=== PATIENT | male | born 1945 | race Caucasian/White ===

== ENCOUNTER 2016-02-26 07:35 | Inpatient (IN) | payer MEDICARE ==
[~2016-02-26] VITALS: Ht 182.9 cm; Wt 103.5 kg
[2016-02-26] MEDS ORDERED: ASPI1TAB69 PO (11:01)
[2016-02-26] MEDS ORDERED: LISI10TA3 PO (11:01)
--- NOTE | 2016-03-17 17:22 | MH ---
cc: Akash HUGHES M.D. DATE OF ADMISSION: 03/18/2016 ADMISSION DIAGNOSIS Osteoarthritic degeneration right knee, now being admitted for right total knee arthroplasty. ADMISSION HISTORY AND PHYSICAL This pleasant 70-year-old male is being admitted today for severe painful osteoarthritic degeneration of the right knee now for a right total knee arthroplasty. OTHER PAST HISTORY/MEDICATIONS He has a history of platelet problems but his last platelet count was 129. He has a history of hypertension and skin problems for which he takes lisinopril, aspirin, Mobic and omeprazole. PREVIOUS SURGERIES A left total knee in 2007. REVIEW OF SYSTEMS Noncontributory. FAMILY HISTORY Noncontributory. SOCIAL HISTORY The patient does not smoke. Does drink some alcohol. ALLERGIES NO KNOWN ALLERGIES. PHYSICAL EXAMINATION GENERAL: We find a 70-year-old male well-developed, well-nourished, oriented x3, complaining of pain in his right knee, he is using a cane to ambulate. VITAL SIGNS: Blood pressure 136/82, pulse 60 and regular, respirations 18, temperature 97.7, pulse oximetry 98% on room air. HEENT: Eyes: Pupils equal, round, reactive to light and accommodation. Extraocular movements intact. Ears, nose, mouth: Clear. NECK: Supple. LUNGS: Clear. HEART: Regular rate. ABDOMEN: Soft, positive bowel sounds, nontender. EXTREMITIES: Reveals the right knee to be tender with crepitance throughout range of motion, -5 of extension, 85 of flexion, slight genu varus deformity. IMPRESSION AT THIS TIME Severe painful osteoarthritic degeneration of the right knee. PLAN The plan is admission for right total knee arthroplasty today. The patient understands the procedure well and the risks involved and he understands to use Hibiclens scrub and Bactroban preoperatively and is given a prescription for postoperative pain and anticoagulation control as he plans on going home several days after surgery for home health care. MD NEEL Garcia/OTTO /4:47 PM /4:53 PM
[2016-03-18] MEDS ORDERED: INSULIN HUMAN REGULAR 1,000 UNITS/10 ML VIAL SQ PRN (06:30)
[2016-03-18] MEDS ORDERED: VANCOMYCIN 1000 MG/NS 250 ML (for <70 kg) IV SCH ×2 (06:30)
[2016-03-18] MEDS: CHLORHEXIDINE GLUCONATE 4% SOLN 120 ML BTL TOP SCH (06:30)
[2016-03-18] MEDS ORDERED: METOPROLOL TARTRATE 25 MG TAB PO PRN (06:30)
[2016-03-18] MEDS ORDERED: CYAN50002 SL (06:44)
[2016-03-18 06:45] VITALS: BP 136/79; PULSE 58; RESP 20; TEMP 98.1; O2SAT 97
[2016-03-18] MEDS ORDERED: ceFAZolin 2 GM PREMIX 50 ML IV SCH (07:00)
[2016-03-18] MEDS ORDERED: BUPIVACAINE LIPOSO PF 1.3% INJ 20 ML, BUPIVACAINE PF 0.25% INJ 20 ML in SODIUM CHLORIDE... P-ARTICULR SCH (07:15)
[2016-03-18] MEDS ORDERED: MIDAZOLAM HCL 5 MG/5 ML VIAL ONE (07:22)
[2016-03-18] MEDS ORDERED: FAMOTIDINE 20 MG/2 ML VIAL ONE (07:43)
[2016-03-18] MEDS ORDERED: SODIUM CHLORID 0.9% 500 ML IV SCH (08:00)
[2016-03-18] MEDS ORDERED: SODIUM CHLORIDE 0.9% IV SCH ×2 (08:00→11:00)
[2016-03-18] MEDS ORDERED: LACTATED RINGER'S 1000 ML IV SCH (08:00)
[2016-03-18] MEDS ORDERED: TRANEXAMIC ACID IV SCH ×2 (08:00→11:00)
[2016-03-18] MEDS ORDERED: ceFAZolin INJ 1,000 MG VIAL TOP ONE (08:44)
[2016-03-18] MEDS: LACTATED RINGER'S 1000 ML INJ 1,000 ML IV SCH (10:33)
--- NOTE | 2016-03-18 10:36 | HHI.FF ---
Face to Face Verification Diagnosis: (1) Total knee replacement status Physical Therapy Gait training Knee: Total knee, Protocol: Right, Full weight bearing Canvas Knee Splint: When in bed & 2 pillows btw thighs Nursing RN: 3 days/week x 2 weeks Nursing: Jennifer teaching, Dressing changes Dressing Changes: Daily dressing change, 4x4s, Gauze, Paper tape I have seen patient Darryl Black on 03/18/16. My clinical findings support the need for the requested home health care services because: Limited ability to care for self High risk of falls I certify that my clinical findings support that this patient is homebound because: Unsteady gait/balance Akash Golden MD Mar 18, 2016 10:36
[2016-03-18] MEDS ORDERED: MISC-163 (10:38)
[2016-03-18] MEDS ORDERED: CPMMACHINE (10:38)
[2016-03-18] MEDS ORDERED: WALKER WHEELS/F1 MIS (10:38)
[2016-03-18] MEDS ORDERED: TRANEXAMIC ACID INJ 0 MG in SODIUM CHLORIDE 0.9% INJ 100 ML IV SCH (10:45)
[2016-03-18] MEDS ORDERED: Post-op Orders (for Pharmacy) MISC XX ONE (10:45)
[2016-03-18] MEDS ORDERED: ONDANSETRON HCL 4 MG/2 ML VIAL IVP PRN (10:45)
[2016-03-18] MEDS ORDERED: ACETAMINOPHEN 325 MG TAB PO PRN (10:45)
[2016-03-18] MEDS ORDERED: TEMAZEPAM 15 MG CAP PO PRN (10:45)
[2016-03-18] MEDS ORDERED: MORPHINE SULFATE 30 MG/30 ML PCA IV SCH (10:45)
[2016-03-18] MEDS ORDERED: NALOXONE HCL 0.4 MG/ML AMP IV PRN ×2 (10:45)
[2016-03-18] MEDS ORDERED: ACETAMINOPHEN/HYDROcodone 325 MG/7.5 MG TAB PO PRN (10:45)
[2016-03-18] MEDS ORDERED: diphenhydrAMINE HCL 50 MG/ML VIAL IV PRN (10:45)
[2016-03-18] MEDS ORDERED: SODIUM CHLORIDE 0.9% FLUSH 5 ML FLUSH IVF PRN (10:45)
[2016-03-18] MEDS ORDERED: fentaNYL CITRATE 250 MCG/5 ML AMP ONE (11:13)
[2016-03-18] MEDS ORDERED: BUPIVACAINE HCL PF 0.5% 30 ML VIAL NB ONE (11:20)
[2016-03-18] MEDS ORDERED: ONDANSETRON HCL 4 MG/2 ML VIAL IV PUSH ONE (12:00)
[2016-03-18] MEDS ORDERED: PROPOFOL 200 MG/20 ML AMP IV ONE (12:00)
[2016-03-18] MEDS ORDERED: DO NOT ADM ANY ANTICOAGULANT DRUGS XX PRN (12:30)
--- NOTE | 2016-03-18 12:57 | RADRPT ---
EXAM DATE/TIME: 03/18/2016 11:38 [facility] COMPARISON: No previous studies available for comparison. INDICATIONS : Right knee replacement. MEDICAL HISTORY : Unobtainable. SURGICAL HISTORY : Unobtainable. ENCOUNTER: Initial ACUITY: 1 day PAIN SCORE: Non-responsive. LOCATION: Left knee FINDINGS: Two view examination of the right knee demonstrates postsurgical changes following knee replacement. Prosthetic components are well-seated in satisfactory aligned. There is no evidence of acute fracture. CONCLUSION: Satisfactory postoperative appearance of the right knee following total knee replacement. Paco Rios MD on March 18, 2016 at 12:53 Board Certified Radiologist. This report was verified electronically.
[2016-03-18] MEDS: PCA - TOTAL MG MORPHINE DELIVERED PER SHIFT SCH ×2 (13:15→22:00)
[2016-03-18 15:50] VITALS: BP 143/78; PULSE 76; RESP 17; TEMP 97; O2SAT 96
[2016-03-18 19:39] VITALS: O2SAT 96
[2016-03-18 20:07] VITALS: BP 128/71; PULSE 63; RESP 17; TEMP 99.7; O2SAT 96
[2016-03-18] MEDS: SODIUM CHLORIDE 0.9% FLUSH 5 ML FLUSH IVF SCH (20:56)
[2016-03-19] VITALS (8 sets, daily range): BP systolic 119–130; BP diastolic 57–77; PULSE 57–77; RESP 16–17; TEMP 97.7–99.6; O2SAT 91–98
[2016-03-19] MEDS: LACTATED RINGER'S 1000 ML INJ 1,000 ML IV SCH ×2 (02:38→10:10)
[2016-03-19 05:34] LABS: HEMATOCRIT 36.3 % (39.0-51.0)
[2016-03-19 05:54] LABS: REVIEW FLAG FINAL
[2016-03-19] MEDS: PCA - TOTAL MG MORPHINE DELIVERED PER SHIFT SCH (06:00)
[2016-03-19] MEDS: CHLORHEXIDINE GLUCONATE 4% SOLN 120 ML BTL TOP SCH (06:30)
[2016-03-19] MEDS: SODIUM CHLORIDE 0.9% FLUSH 5 ML FLUSH IVF SCH ×2 (09:00→21:43)
--- NOTE | 2016-03-19 09:03 | PD.ORT.PN ---
Subjective Subjective Remarks 70 yo male POD#1 s/p right knee arthroplasty Patient has no complaints. He denies any nausea or vomiting, chest pain or SOB. He has been using his pain pump intermittently. He has voided once but has not yet had a BM. Yesterday he stood up & moved to the chair for a few hours. Physical therapy saw him yesterday. Objective Vitals Vital Signs Date Time Temp Pulse Resp B/P Pulse Ox O2 Delivery O2 Flow Rate FiO2 03/19/16 06:00 20 03/19/16 04:07 97.7 60 17 119/57 97 03/19/16 00:10 97.9 57 17 129/71 98 03/18/16 23:40 16 03/18/16 22:00 18 03/18/16 20:07 99.7 63 17 128/71 96 03/18/16 19:39 96 21 03/18/16 15:50 97.0 76 17 143/78 96 03/18/16 13:15 17 03/18/16 12:45 98.1 61 12 128/74 95 Room Air 03/18/16 12:30 60 12 120/73 95 Room Air 03/18/16 12:15 59 12 123/72 95 Room Air 03/18/16 12:00 59 12 123/74 97 Room Air 03/18/16 11:45 59 12 131/79 97 Nasal Cannula 2 03/18/16 11:30 61 12 136/77 97 Nasal Cannula 2 03/18/16 11:15 61 12 136/78 97 Nasal Cannula 2 03/18/16 11:10 98.0 67 12 139/80 97 Nasal Cannula 2 I/O 03/18/16 03/18/16 03/18/16 03/19/16 03/19/16 03/19/16 07:00 15:00 23:00 07:00 15:00 23:00 Intake Total 1040 ml 480 ml 480 ml Output Total 600 ml 700 ml 500 ml Balance 440 ml -220 ml -20 ml Intake Oral 240 ml 480 ml 480 ml Other 800 ml Output Urine Total 500 ml 700 ml 500 ml Estimated Blood Loss 100 ml # Bowel Movements 0 0 0 Result Diagram: 03/19/16 0515 Imaging Last 24 hours Impressions Knee X-Ray 03/18/16 1033 Signed Impressions: Service Date/Time: March 11:38 - CONCLUSION: Satisfactory postoperative appearance of the right knee following total knee replacement. Paco Rios MD Objective Remarks Heart: regular rate and rhythm. No rubs, murmurs or gallops. Lungs: clear to auscultation bilaterally. No wheezes, rales, rhonchi. Abdomen: Bowel sounds noted. Soft, non-tender abdomen Extremities: Right leg stabilized in CPM with dressing. No peripheral edema. Assessment & Plan Ortho Post Op Day #: 1 Problem List: Assessment and Plan out of bed PT dressing change daily d/c [employer] REPA[employer] TECHNICIAN consider d/c late tomorrow or Tuesday Akash Golden MD Mar 19, 2016 09:03
[2016-03-19] MEDS: ASPIRIN EC 81 MG TABEC PO SCH (09:14)
[2016-03-19] MEDS: CYANOCOBALAMIN 1,000 MCG TAB PO SCH (09:15)
[2016-03-19] MEDS: LISINOPRIL 10 MG TAB PO SCH (09:15)
[2016-03-19] MEDS: ACETAMINOPHEN/HYDROcodone 325 MG/7.5 MG TAB PO PRN ×4 (09:15→21:43)
--- NOTE | 2016-03-19 10:04 | MP ---
cc: Akash HUGHES M.D. DATE OF SURGERY: 03/18/2016 PREOPERATIVE DIAGNOSIS Osteoarthritic degeneration, right knee. POSTOPERATIVE DIAGNOSIS Osteoarthritic degeneration, right knee. SURGERY PERFORMED Right total knee arthroplasty using Consensus knee system with the pre-made cutting blocks, size 3 patella, 6 femur, 4 tibia and 12 insert with two batches of [place] blue cement. SURGEON Dr. Hughes [employer]IV[employer] ENGINEERING DESIGNER Danielle Pope, and Sandra Alfredo, MS III ANESTHESIA Block and general intubation. PROCEDURE After successful induction of anesthesia, the patient is placed on the operating room table in the supine position. The knee is prepped and draped in the usual manner. A tourniquet is inflated at the upper thigh and set to 300 mmHg pressure after exsanguination of the lower extremity. A longitudinal incision is made extending from 3 inches proximal to the superior pole of the patella, across the patella in longitudinal fashion, and down past the insertion of the tibial tubercle into the proximal tibia. The incision is carried down through subcutaneous tissue along the medial aspect of the patella and retinaculum, down through the capsule to expose the knee joint. The patella and patellar tendon are freed up enough to allow the patella to be inverted and retracted off the lateral side of the knee joint. The knee joint is left exposed. Small osteophytes are removed. All soft tissue is removed to allow proper position of the femoral and tibial cutting jig guide. The first femoral jig is then inserted along the distal end of the femur after first measuring to decide whether this is a small, medium, or large component. The notch is then drilled and the tibial cutting guide inserted into the femoral cutting guide, along with the ankle brace to allow for proper measurement of the tibial cutting surface that needed to be resected. Pins are inserted into the tibial cutting jig and femoral cutting jig to hold them in place. An oscillating saw is then used to resect the surface of the tibia. The surface of the tibia is then completely removed using sharp and blunt dissection. The anterior and posterior cuts of the femur are then made as well using an oscillating saw through the cutting guide. All guides are then removed and the varus/valgus angulation cutting guide applied to the femur for proper measurement of the proper amount of valgus. The anterior cutting guide for the femur is then inserted at the anterior femoral cuts made. Next, the first block trial is inserted into the femur to allow for proper condyle drill holes to be made which are then made followed by removal of the bone between the condyles using an oscillating saw as well as the bone removed at the most posterior surface of the condyle. After this, this guide is removed and the chamfer cuts made using the chamfer cutting guide from both anterior and posterior. Next, the femoral trial is then inserted, the tibial surface reflected anterior to expose the tibial surface and a tibial stem guide is inserted after first measuring for a standard, standard plus, large, or large plus surface to be used. After the stem is impacted the trial tibial surface is applied followed by the trial meniscal components. After full range of motion is found with the appropriate length meniscal components varying the patella is prepared by resecting the posterior aspect of the patella using an oscillating saw, inserting a trial. The trial is then removed and the cruciate cutting guide applied using the bur to cut the cruciate cuts. After cruciate cuts are made all trials are removed. The wound is irrigated copiously with antibiotic solution and Water Pik and the actual components inserted into place using Consensus knee system with the pre-made cutting blocks, size 3 patella, 6 femur, 4 tibia and 12 insert with two batches of [place] blue cement. After the cement has hardened and the components are found to have full range of motion with no instability, the tourniquet is deflated, total tourniquet time being 67 minutes at 300 mmHg pressure. The wound again is irrigated copiously with antibiotic solution, meticulous hemostasis achieved. The deep fascia is closed with running #2 Quill. The subcutaneous tissue is approximated using interrupted and running 2-0 and 3-0 Monocryl sutures. Steri-Strips, sterile dressing and a knee immobilizer are applied. 120 cc of Exparel with Marcaine is injected around the knee joint. Estimated blood loss is 100 cc. Sponge and suture count correct. The patient tolerated the procedure well and left the Operating Room in satisfactory condition. J. MD NEEL Lozada/SHAYAN /10:31 AM /9:44 AM
[2016-03-19] MEDS: ENOXAPARIN SODIUM 30 MG/0.3 ML SYRINGE SQ SCH ×2 (10:10→21:42)
[2016-03-19] MEDS ORDERED: ALUMINUM/MAGNESIUM/SIMETH 30 ML CUP PO PRN (16:45)
[2016-03-19] MEDS: MULTIVITAMINS/MINERALS THERAPEUTIC TAB PO SCH (21:42)
[2016-03-19] MEDS: DOCUSATE SODIUM 100 MG CAP PO SCH (21:42)
[2016-03-20] MEDS: LACTATED RINGER'S 1000 ML INJ 1,000 ML IV SCH ×3 (00:03→21:05)
[2016-03-20 00:27] VITALS: BP_SYST 109; BP_SYST 114; BP_DIAS 58; BP_DIAS 69; PULSE 58; PULSE 78; RESP 16; RESP 17; TEMP 98.2; TEMP 98.9; O2SAT 96; O2SAT 97
[2016-03-20] MEDS: ACETAMINOPHEN/HYDROcodone 325 MG/7.5 MG TAB PO PRN ×6 (01:34→22:04)
[2016-03-20] MEDS: CHLORHEXIDINE GLUCONATE 4% SOLN 120 ML BTL TOP SCH (06:30)
[2016-03-20 06:35] LABS: HEMATOCRIT 36.1 % (39.0-51.0)
[2016-03-20 07:02] LABS: REVIEW FLAG FINAL
[2016-03-20 08:00] VITALS: BP 158/72; PULSE 73; RESP 16; TEMP 97.8; O2SAT 99
[2016-03-20] MEDS: SODIUM CHLORIDE 0.9% FLUSH 5 ML FLUSH IVF SCH ×2 (09:00→21:00)
[2016-03-20] MEDS: ENOXAPARIN SODIUM 30 MG/0.3 ML SYRINGE SQ SCH ×2 (09:22→21:04)
[2016-03-20] MEDS: MAGNESIUM HYDROXIDE SUSP 30 ML CUP PO SCH ×2 (09:22→21:04)
[2016-03-20] MEDS: ASPIRIN EC 81 MG TABEC PO SCH (09:23)
[2016-03-20] MEDS: LISINOPRIL 10 MG TAB PO SCH (09:23)
[2016-03-20] MEDS: DOCUSATE SODIUM 100 MG CAP PO SCH ×2 (09:23→21:04)
[2016-03-20] MEDS: MULTIVITAMINS/MINERALS THERAPEUTIC TAB PO SCH ×2 (09:23→21:04)
[2016-03-20] MEDS: CYANOCOBALAMIN 1,000 MCG TAB PO SCH (09:24)
[2016-03-20] MEDS ORDERED: BACITRACIN OINT 0.9 GM PKT TOP PRN (10:15)
[2016-03-20 10:56] VITALS: O2SAT 98
--- NOTE | 2016-03-20 11:34 | PD.ORT.PN ---
Subjective Subjective Remarks Pt comfortable today. No complaints except for no BM yet. Objective Vitals Vital Signs Date Time Temp Pulse Resp B/P Pulse Ox O2 Delivery O2 Flow Rate FiO2 03/20/16 10:56 98 21 03/20/16 08:00 97.8 73 16 158/72 99 03/20/16 00:27 98.9 58 17 109/58 96 03/19/16 23:07 91 21 03/19/16 20:21 97.7 69 17 119/61 98 03/19/16 16:00 99.6 73 16 130/68 97 03/19/16 12:00 98.7 69 16 125/62 98 I/O 03/19/16 03/19/16 03/19/16 03/20/16 03/20/16 03/20/16 07:00 15:00 23:00 07:00 15:00 23:00 Intake Total 480 ml 667 ml 240 ml 500 ml Output Total 500 ml 550 ml 240 ml 1625 ml Balance -20 ml 117 ml 0 ml -1125 ml Intake Oral 480 ml 480 ml 240 ml 500 ml IV Total 187 ml Output Urine Total 500 ml 550 ml 240 ml 1625 ml # Voids 2 # Bowel Movements 0 0 0 0 Result Diagram: 03/20/16 0522 Imaging Last 24 hours Impressions Knee X-Ray 03/18/16 1033 Signed Impressions: Service Date/Time: March 11:38 - CONCLUSION: Satisfactory postoperative appearance of the right knee following total knee replacement. Paco Rios MD Objective Remarks Dressing dry and intact. NV intact. Sitting up in chair. Assessment & Plan Ortho Post Op Day #: 2 Problem List: Assessment and Plan Doing well today. Home tomorrow. Akash Golden MD Mar 20, 2016 11:33
[2016-03-20 12:00] VITALS: BP 114/72; PULSE 81; RESP 16; TEMP 98.5; O2SAT 98
[2016-03-20 16:00] VITALS: BP 123/80; PULSE 75; RESP 16; TEMP 98.9; O2SAT 98
[2016-03-20 20:35] VITALS: BP 136/69; PULSE 58; RESP 17; TEMP 97; O2SAT 98
[2016-03-21 00:13] VITALS: BP 126/61; PULSE 69; RESP 17; TEMP 99.3; O2SAT 94
[2016-03-21] MEDS: ACETAMINOPHEN/HYDROcodone 325 MG/7.5 MG TAB PO PRN ×2 (03:59→08:58)
[2016-03-21 04:10] VITALS: BP 131/67; PULSE 63; RESP 17; TEMP 97.8; O2SAT 96
[2016-03-21 07:52] VITALS: BP 126/75; PULSE 64; RESP 18; TEMP 97.9; O2SAT 98
[2016-03-21] MEDS: ASPIRIN EC 81 MG TABEC PO SCH (08:57)
[2016-03-21] MEDS: ENOXAPARIN SODIUM 30 MG/0.3 ML SYRINGE SQ SCH (08:57)
[2016-03-21] MEDS: CYANOCOBALAMIN 1,000 MCG TAB PO SCH (08:57)
[2016-03-21] MEDS: LISINOPRIL 10 MG TAB PO SCH (08:57)
[2016-03-21] MEDS: MAGNESIUM HYDROXIDE SUSP 30 ML CUP PO SCH (08:58)
[2016-03-21] MEDS: MULTIVITAMINS/MINERALS THERAPEUTIC TAB PO SCH (08:58)
[2016-03-21] MEDS: DOCUSATE SODIUM 100 MG CAP PO SCH (08:58)
[2016-03-21] MEDS: SODIUM CHLORIDE 0.9% FLUSH 5 ML FLUSH IVF SCH (08:59)
--- NOTE | 2016-03-21 09:32 | PD.ORT.PN ---
Subjective Subjective Remarks Pt comfortable today. No complaints. Objective Vitals Vital Signs Date Time Temp Pulse Resp B/P Pulse Ox O2 Delivery O2 Flow Rate FiO2 03/21/16 07:52 97.9 64 18 126/75 98 03/21/16 04:10 97.8 63 17 131/67 96 03/21/16 00:13 99.3 69 17 126/61 94 03/20/16 20:35 97.0 58 17 136/69 98 03/20/16 16:00 98.9 75 16 123/80 98 03/20/16 12:00 98.5 81 16 114/72 98 03/20/16 10:56 98 21 I/O 03/20/16 03/20/16 03/20/16 03/21/16 03/21/16 03/21/16 07:00 15:00 23:00 07:00 15:00 23:00 Intake Total 500 ml 480 ml 960 ml 480 ml Output Total 1625 ml 500 ml 850 ml Balance -1125 ml -20 ml 110 ml 480 ml Intake Oral 500 ml 480 ml 960 ml 480 ml Output Urine Total 1625 ml 500 ml 850 ml # Voids 2 3 # Bowel Movements 0 0 0 3 Result Diagram: 03/20/16 0522 Imaging Last 24 hours Impressions Knee X-Ray 03/18/16 1033 Signed Impressions: Service Date/Time: March 11:38 - CONCLUSION: Satisfactory postoperative appearance of the right knee following total knee replacement. Paco Rios MD Objective Remarks Dressing dry and intact. NV intact. Assessment & Plan Ortho Post Op Day #: 3 Problem List: Assessment and Plan Doing well today. Home today. Akash Golden MD Mar 21, 2016 09:32
--- NOTE | 2016-03-21 09:36 | HHI.DS ---
Discharge Summary Admission Date Mar 18, 2016 at 05:52 Discharge Date: Mar 21, 2016 Admitting Diagnosis osteoarthritic degeneration right knee. Diagnosis: (1) Total knee replacement status Diagnosis: Principal Brief History This is a 70 year old male patient CBC/BMP: 03/20/16 0522 Significant Findings Laboratory Tests Test 03/19/16 03/20/16 05:15 05:22 Hemoglobin 12.2 GM/DL 11.9 GM/DL (13.0-17.0) (13.0-17.0) Hematocrit 36.3 % 36.1 % (39.0-51.0) (39.0-51.0) PE at Discharge Dressing dry and intact. NV intact. Hospital Course This patient underwent a right total knee arthroplasty on day of admission. He received a course of prophylactic IV antibiotics and within 23 hours started on anticoagulation therapy. He remained afebrile vital signs stable and began out of bed tolerating food and fluids well and physical therapy. He continued to improve and was discharged on postoperative day #3 in good condition with instructions for home healthcare and appointment for follow up in the office. He has Lovenox for anticoagulation therapy at home as well as pain pills. Pt Condition on Discharge: Good Discharge Disposition: Disch w/ Home Health Serv Discharge Instructions Diet Instructions: As Tolerated, No Restrictions Activities You Can Perform: Full Weight Bearing, Shower Only-No Bath Activities to Avoid: Bathing, Driving Akash Golden MD Mar 21, 2016 09:36
== END 2016-03-21 11:29 | disposition home health service (06) | DRG 470 ==
LOC: HSDI 03-18 05:52 → N06B 03-18 13:02
PROVIDERS: ADMIT Surgery; ATTEND Surgery
PROC: 3E0T3CZ (ICD-10-PCS; 2016-03-18)
PROC: 0SRC0J9 Replacement of Right Knee Joint with Synthetic Substitute, Cemented, Open Approach (ICD-10-PCS; principal; 2016-03-18 08:02)
DX: M17.11 Unilateral primary osteoarthritis, right knee (principal); I10 Essential (primary) hypertension; Z96.652 Presence of left artificial knee joint
CPT/HCPCS: 73560; 85014; 85018; 86850; 86900; 86901; 94150; C1776; C9290; J0690; J1650; J2250; J2270; J2405; J3010; J3370; J7050; J7120; L1830